=== PATIENT | male | born 1995 | race Caucasian/White ===

== ENCOUNTER 2022-09-16 15:22 | Outpatient (CLI) | payer OTHER, SELFPAY ==
--- NOTE | ~2022-09-16 | US_ITS ---
EXAMINATION: US scrotum doppler DATE: 09/16/2022 16:00 INDICATION: Scrotal pain TECHNIQUE: Testicular sonogram utilizing grayscale and Doppler COMPARISON: None. FINDINGS: The right testis measures 5.0 x 2.3 x 3.4 cm. The left testis measures 5.0 x 2.7 x 3.1 cm. There is normal vascular flow to both testes. The right epididymis is normal with normal vascular linda w. The left epididymis contains a 6 mm cyst or spermatocele. A left-sided varicocele is noted. IMPRESSION: 1. Left-sided varicocele noted. Otherwise unremarkable scrotal ultrasound. Reviewed, dictated and finalized at location B. [employer]
== END 2022-09-16 15:23 | disposition home or self-care (01) ==
LOC: ANHIMG 15:29
PROVIDERS: Visit Provider Nurse Practitioner
DX: N50.82 Scrotal pain (principal); I86.1 Scrotal varices
CPT/HCPCS: 76870; 93976